=== PATIENT | male | born 1950 | race African-American/Black ===

== ENCOUNTER → 2017-03-23 | Outpatient (CLI) | payer MEDICARE ==
--- NOTE | 2017-03-23 11:32 | Diagnostic Imaging Report ---
PROCEDURE:X-RAY LEFT HUMERUS, TWO OR MORE VIEWS COMPARISON:None. INDICATIONS:PAIN LEFT ARM FINDINGS: There are no fractures, dislocations, lytic or blastic lesions. The bones are well-mineralized. The soft-tissues are unremarkable. CONCLUSION: No acute radiographic abnormality. Dictated by: Guy Roberts M.D. on 03/23/2017 at 11:41 Electronically approved by: Guy Roberts M.D. on 03/23/2017 at 11:41
== END ==
LOC: RAD 10:25
PROVIDERS: ATTEND Family Medicine
DX: M79.622 Pain in left upper arm (principal)

== ENCOUNTER → 2017-04-17 | Outpatient (CLI) | payer MEDICARE ==
--- NOTE | 2017-04-17 12:40 | Diagnostic Imaging Report ---
TECHNIQUE: Magnetic resonance imaging of the LEFT humerus was performed WITHOUT injected contrast. HISTORY: Pain COMPARISON: Images from left humerus radiographs March 23, 2017 FINDINGS: BONES: No acute fracture. No focal or infiltrative bone marrow replacing abnormality. JOINTS: Superior subluxation of the humeral head. No effusion. SOFT TISSUES: Evaluation of the rotator cuff is limited given the [id number] requested, but there appears to be mild edema and atrophy of the visualized portions of the posterior rotator cuff muscles. 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 Recommend a MRI of the shoulder without contrast for further characterization. Signed by: Dr. Hunter Gutiérrez D.O., M.M.M. on 04/17/2017 12:37 PM
== END ==
LOC: MRI 09:57
PROVIDERS: ATTEND Family Medicine
DX: M79.622 Pain in left upper arm (principal)

== ENCOUNTER → 2017-05-16 | Outpatient (CLI) | payer MEDICARE ==
--- NOTE | 2017-05-16 14:03 | Diagnostic Imaging Report ---
TECHNIQUE: Magnetic resonance imaging of the LEFT SHOULDER was performed WITHOUT injected contrast. COMPARISON: None available. HISTORY: Pain FINDINGS: MUSCLES AND TENDONS: Rotator Cuff: Tendons: Full thickness full width tear of the supraspinatus tendon and full-thickness near full width tear of the infraspinatus tendon. Deep fibers retracted approximately 4.5 cm. Moderate atrophy of the musculature. Partial-thickness tearing of the subscapularis. Muscles: No focal muscle atrophy. Biceps Tendon: The long head of the biceps tendon is torn and retracted. GLENOHUMERAL JOINT: Glenoid Labrum: Superior labral tearing. Articular Cartilage: No focal defect. AC JOINT AND ACROMION: Mild hypertrophic degenerative changes of the acromioclavicular joint. Subacromial spur. BONE: No acute fracture. SOFT TISSUES: Subacromial subdeltoid bursal fluid. IMPRESSION: Large full-thickness rotator cuff tear involving the supraspinatus and infraspinatus tendon with retraction and atrophy. High riding humeral head with subacromial spurring. Signed by: Dr. Jarret Kearns M.D. on 05/16/2017 1:59 PM
== END ==
LOC: MRI 10:48
PROVIDERS: ATTEND Specialist
DX: M75.122 Complete rotator cuff tear or rupture of left shoulder, not specified as traumatic (principal)

== ENCOUNTER → 2017-06-16 | Outpatient (CLI) | payer MEDICARE ==
[~2017-06-16] MED LIST: IOPAMIDOL 370 MG/ML 200 ML INFUS..BTL INJ ONE; SODIUM CHLORIDE 0.9% 250ML 250 ML ONE
[2017-06-16 17:21] LABS: BLOOD UREA NITROGEN 14 mg/dL (7-26); BUN/CREATININE RATIO 13 (6-25); CREATININE, SERUM 1.09 mg/dL (0.72-1.25); EST GLOMERULAR FILTRATION RATE > 60 ML/MIN (60-)
--- NOTE | 2017-06-16 19:16 | Diagnostic Imaging Report ---
PROCEDURE: CT ABDOMEN \T\ PELVIS W/WO CONTRAST TECHNIQUE: The abdomen and pelvis were scanned utilizing a multidetector helical scanner from the diaphragm to the lesser trochanter before and after the IV administration of 150 cc of Isovue 370 and the oral administration of water. Coronal and sagittal multiplanar reformations were obtained. 3D volume rendered images were created. DLP: 1488.6 mGy-cm COMPARISON: None. INDICATIONS: HEMATURIA FINDINGS: LOWER THORAX: Normal. HEPATOBILIARY: No focal hepatic lesions. No biliary ductal dilatation. SPLEEN: No splenomegaly. PANCREAS: No focal masses or ductal dilatation. ADRENALS: No adrenal nodules. KIDNEYS/URETERS: No hydronephrosis, stones, or solid mass lesions. Right superior pole 2.1 cm cyst. No filling defects within the opacified portions of the urinary collecting system. The right distal ureter and left mid ureter not well-opacified likely secondary to peristalsis. PELVIC ORGANS/BLADDER: No filling defects in the opacified portions of the bladder. No bladder calculi. Prostate measures approximately 4.1 x 4 x 4.8 cm (40.9 cc). PERITONEUM / RETROPERITONEUM: No free air or fluid. LYMPH NODES: No lymphadenopathy. VESSELS: Mild scattered atherosclerotic calcifications. No abdominal aortic aneurysm. GI TRACT: No distention or wall thickening. Colonic diverticula without evidence of diverticulitis. Tiny indirect right inguinal hernia contains the appendix. No evidence of appendicitis. BONES AND SOFT TISSUES: Multilevel degenerative changes of the thoracolumbar spine. Bone island in the left iliac bone. IMPRESSION: 1. No urolithiasis, renal masses, or filling defects in the opacified portions of the urinary collecting system. 2. Mildly enlarged prostate. 3. Colonic diverticulosis. 4. Right sided tiny Amyand hernia. Dictated by: Christian Chase M.D. on 06/16/2017 at 19:16 Electronically approved by: Christian Chase M.D. on 06/16/2017 at 19:16
== END ==
LOC: CT 16:28
PROVIDERS: ATTEND Family Medicine
DX: R31.9 Hematuria, unspecified (principal)
CPT/HCPCS: 36415; 74178; 82565; 84520; J7050; Q9967

== ENCOUNTER → 2017-10-23 | Outpatient (CLI) | payer MEDICARE ==
--- NOTE | 2017-10-23 11:46 | Diagnostic Imaging Report ---
PROCEDURE:X-RAY LEFT HEEL COMPARISON:None. INDICATIONS:LEFT HEEL PAIN FINDINGS: Normal mineralization. No evidence of fracture or malalignment. The joint spaces are preserved. No evidence of calcaneal spur or enthesopathy. CONCLUSION: Unremarkable left calcaneal radiographs. Dictated by: SIERRA LOUIS M.D. on 10/23/2017 at 11:51 Electronically approved by: SIERRA LOUIS M.D. on 10/23/2017 at 11:51
== END ==
LOC: RAD 09:55
PROVIDERS: ATTEND Family Medicine
DX: M79.672 Pain in left foot (principal); M89.8X7 Other specified disorders of bone, ankle and foot

== ENCOUNTER → 2018-03-13 | Outpatient (CLI) | payer MEDICARE ==
--- NOTE | 2018-03-13 11:22 | Diagnostic Imaging Report ---
PROCEDURE:ABDOMINAL ULTRASOUND COMPARISON:CT urogram 06/16/2017. INDICATIONS:ABDOMINAL PAIN TECHNIQUE: -scale and color sonographic images were obtained of the abdomen in transverse and sagittal planes. FINDINGS: Liver: 14.1 in length in right midclavicular line. Normal parenchymal echogenicity. No masses. Main portal vein: 0.7 cm in caliber. hepatopetal flow Gallbladder: Unremarkable without shadowing calculus, wall thickening, or pericholecystic fluid. Common Bile Duct: 0.4 cm in caliber. Sonographic Cuello's sign: Reported as negative. Right kidney: 10.1 cm in length. Exophytic upper pole cyst measures 2 x 1.9 x 2.2 cm, not significant changed relative to prior CT. No solid mass or hydronephrosis. Left kidney: 11.3 cm in length. Normal renal cortical echogenicity. No solid or cystic mass lesion. No hydronephrosis. Spleen: 8.9 cm in length. Uniform parenchymal echotexture. Pancreas: Poorly visualized secondary to overlying bowel gas. Inferior vena cava: Patent Aorta: Non-aneurysmal Ascites: None CONCLUSION: Simple right renal cyst. Otherwise unremarkable abdominal ultrasound. Dictated by: Adrian Wick M.D. on 03/13/2018 at 11:32 Electronically approved by: Adrian Wick M.D. on 03/13/2018 at 11:32
== END ==
LOC: US 09:29
PROVIDERS: ATTEND Family Medicine
DX: R10.9 Unspecified abdominal pain (principal); K92.0 Hematemesis
CPT/HCPCS: 76700

== ENCOUNTER → 2019-01-28 | Day surgery (SDC) | payer MEDICARE ==
[2019-01-25 15:23] LABS: BASOPHILS % 0.4 % (0.0-1.0); EOSINOPHILS # (AUTO) 0.3 (0.0-0.4); EOSINOPHILS % 4.5 % (0.0-6.0); HEMATOCRIT 40.7 % (38.2-49.6); HEMOGLOBIN 13.6 g/dL (14.0-18.0); LYMPHOCYTES # (AUTO) 2.3 (1.0-3.2); LYMPHOCYTES % 40.6 % (18.0-39.1); MEAN CORPUSCULAR HGB CONC 33.4 g/dL (31-35); MEAN CORPUSCULAR VOLUME 89.6 fL (81-99); MONOCYTES # (AUTO) 0.6 (0.2-0.8); MONOCYTES % 10.8 % (4.4-11.3); NEUTROPHILS # (AUTO) 2.4 (2.1-6.9); NEUTROPHILS % 43.5 % (38.7-80.0); PLATELET COUNT 188 x10e3/uL (140-360); RED BLOOD COUNT 4.54 x10e6/uL (4.3-5.7); RED CELL DISTRIBUTION WIDTH 13.6 % (11.7-14.4)
[2019-01-25 15:34] LABS: INR 0.89; PARTIAL THROMBOPLASTIN TIME 27.5 seconds (23.8-35.5); PROTHROMBIN TIME 12.5 seconds (11.9-14.5)
[2019-01-25 18:12] LABS: ALANINE AMINOTRANSFERASE 18 IU/L (0-55); ALBUMIN 3.9 g/dL (3.5-5.0); ALBUMIN/GLOBULIN RATIO 1.3 (0.8-2.0); ALKALINE PHOSPHATASE 70 IU/L (40-150); ANION GAP 12.7 mmol/L (8-16); BLOOD UREA NITROGEN 13 mg/dL (7-26); BUN/CREATININE RATIO 12 (6-25); CALCIUM 9.7 mg/dL (8.4-10.2); CARBON DIOXIDE 27 mmol/L (22-29); CHLORIDE 100 mmol/L (98-107); CREATININE, SERUM 1.11 mg/dL (0.72-1.25); EST GLOMERULAR FILTRATION RATE > 60 ML/MIN (60-); GLUCOSE 83 mg/dL (74-118); POTASSIUM 3.7 mmol/L (3.5-5.1); SODIUM 136 mmol/L (136-145)
[~2019-01-28] VITALS: Ht 188 cm; Wt 99.8 kg
[~2019-01-28] MED LIST changes: +ASPIR-LOW81 MG PO; +FENTANYL CITRATE/PF 100MCG/2 ML INJ ONE; +HEPARIN SOD/SOD CHLORIDE 2,000 ML ONE; +HYDROCHLOROTHIA25 MG; +LIDOCAINE HCL 2% LOCAL 20 ML VIAL ONE; +LOTREL 10-40 M1 EACH PO; +METOPROLOL SUCC50 MG PO; +MIDAZOLAM HCL 2 MG/2 ML VIAL ONE; +SODIUM CHLORIDE 0.9% 1000ML 1,000 ML ONE; -SODIUM CHLORIDE 0.9% 250ML 250 ML ONE; +VERAPAMIL HCL 2.5 MG/ML 2 ML VIAL ONE
--- OUTSIDE RECORDS SUMMARY | 2019-01-28 08:22 | XMS REPORT ---
Author Author [facility] Address Unknown Phone Unavailable Care Team Providers Care Ham Passer Name Role Phone RICHIE LOPEZ Unavailable Unavailable ROBIN HARVEY Unavailable Unavailable Problems This patient has no known problems. Allergies, Adverse Reactions, Alerts This patient has no known allergies or adverse reactions. Medications This patient has no known medications. Results Test Description Test Time Test Comments Text Results Atomic Results Result Comments US ABDOMEN COMPLETE 2018-03-13 11:32:00 [place] [address] Patient Name: SHAYLA PEREZ MR #: [id number] : 1950 Age/Sex: 67/M Req #: [id number] Adm Physician: Ordered by: JOHN VALDES, RICHIE Monk MD Report #: [id number] Location: US Room/Bed: Procedure: [id number] US/US ABDOMEN COMPLETE Exam Date: 03/13/18 Exam Time: 1000 REPORT STATUS: Signed PROCEDURE: ABDOMINAL ULTRASOUND COMPARISON: CT urogram 06/16/2017. INDICATIONS: ABDOMINAL PAIN TECHNIQUE: -scale and color sonographic images were obtained of the abdomen in transverse and sagittal planes. FINDINGS: Liver: 14.1 in length in right midclavicular line. Normal parenchymal echogenicity. No masses. Main portal vein: 0.7 cm in caliber. hepatopetal flow Gallbladder: Unremarkable without shadowing calculus, wall thickening, or pericholecystic fluid. Common Bile Duct: 0.4 cm in caliber. Sonographic Cuello's sign: Reported as negative. Right kidney: 10.1 cm in length. Exophytic upper pole cyst measures 2 x 1.9 x 2.2 cm, not significant changed relative to prior CT. No solid mass or hydronephrosis. Left kidney: 11.3 cm in length. Normal renal cortical echogenicity. No solid or cystic mass lesion. No hydronephrosis. Spleen: 8.9 cm in length. Uniform parenchymal echotexture. Pancreas: Poorly visualized secondary to overlying bowel gas. Inferior vena cava: Patent Aorta: Non-aneurysmal Ascites: None CONCLUSION: Simple right renal cyst. Otherwise unremarkable abdominal ultrasound. Dictated by: Brice Wick M.D. on 03/13/2018 at 11:32 Electronically approved by: Brice Wick M.D. on 03/13/2018 at 11:32 Dictated By: BRICE WICK MD 1132 Transcribed By: RENAY on 03/13/18 1132 COPY TO: RICHIE LOPEZ LT 2017-10-23 11:51:00 [place] [address] Patient Name: SHAYLA PEREZ MR #: [id number] : 1950 Age/Sex: 67/M Req #: [id number] Adm Physician: Ordered by: RICHIE LOPEZ MD, MD Report #: [id number] Location: [facility] Room/Bed: Procedure: [id number] DX/HEEL LT Exam Date: 10/23/17 Exam Time: 1030 REPORT STATUS: Signed PROCEDURE: X-RAY LEFT HEEL COMPARISON: None. INDICATIONS: LEFT HEEL PAIN FINDINGS: Normal mineralization. No evidence of fracture or malalignment. The joint spaces are preserved. No evidence of calcaneal spur or enthesopathy. CONCLUSION: Unremarkable left calcaneal radiographs. Dictated by: SIERRA LOUIS M.D. on 10/23/2017 at 11:51 Electronically approved by: SIERRA LOUIS M.D. on 10/23/2017 at 11:51 Dictated By: SIERRA LOUIS MD 1151 Transcribed By: RENAY on 10/23/17 1151 COPY TO: RICHIE LOPEZ CT ABDOMEN/PELVIS WOW [place] [address] Patient Name: SHAYLA PEREZ MR #: [id number] : 1950 Age/Sex: 66/M Req #: [id number] Adm Physician: Ordered by: JOHN VALDES, RICHIE Monk MD Report #: [id number] Location: CT Room/Bed: Procedure: [id number] CT/CT ABDOMEN/PELVIS WOW Exam Date: 06/16/17 Exam Time: 1800 REPORT STATUS: Signed PROCEDURE: CT ABDOMEN T PELVIS W/WO CONTRAST TECHNIQUE: The abdomen and pelvis were scanned utilizing a multidetector helical scanner from the diaphragm to the lesser trochanter before and after the IV administration of 150 cc of Isovue 370 and the oral administration of water. Coronal and sagittal multiplanar reformations were obtained. 3D volume rendered images were created. DLP: 1488.6 mGy-cm COMPARISON: None. INDICATIONS: HEMATURIA FINDINGS: LOWER THORAX: Normal. HEPATOBILIARY: No focal hepatic lesions. No biliary ductal dilatation. SPLEEN: No splenomegaly. PANCREAS: No focal masses or ductal dilatation. ADRENALS: No adrenal nodules. KIDNEYS/URETERS: No hydronephrosis, stones, or solid mass lesions. Right superior pole 2.1 cm cyst. No filling defects with in the opacified portions of the urinary collecting system. The right distal ureter and left mid ureter not well-opacified likely secondary to peristalsis. PELVIC ORGANS/BLADDER: No filling defects in the opacified portions of the bladder. No bladder calculi. Prostate measures approximately 4.1 x 4 x 4.8 cm (40.9 cc). PERITONEUM / RETROPERITONEUM: No free air or fluid. LYMPH NODES: No lymphadenopathy. VESSELS: Mild scattered atherosclerotic calcifications. No abdominal aortic aneurysm. GI TRACT: No distention or wall thickening. Colonic diverticula without evidence of diverticulitis. Tiny indirect right inguinal hernia contains the appendix. No evidence of appendicitis. BONES AND SOFT TISSUES: Multilevel degenerative changes of the thoracolumbar spine. Bone island in the left iliac bone. IMPRESSION: 1. No urolithiasis, renal masses, or filling defects in the opacified portions of the urinary collecting system. 2. Mildly enlarged prostate. 3. Colonic diverticulosis. 4. Right sided tiny Amyand hernia. Dictated by: Christian Velasquez M.D. on 06/16/2017 at 19:16 Electronically approved by: Christian Velasquez M.D. on 06/16/2017 at 19:16 Dictated By: CHRISTIAN VELASQUEZ MD 15 Transcribed By: RENAY on 06/16/171915 COPY TO: RICHIE LOPEZ MRI SHOULDER LEFT [place] [address] Patient Name: SHAYLA PEREZ MR #: [id number] : 1950 Age/Sex: 66/M Req #: [id number] Adm Physician: Ordered by: ROBIN HARVEY MD Report #: [id number] Location: MRI Room/Bed: Procedure: [id number] MRI/MRI SHOULDER LEFT WO Exam Date: Exam Time: REPORT STATUS: Signed TECHNIQUE: Magnetic resonance imaging of the LEFT SHOULDER was performed WITHOUT injected contrast. COMPARISON: None available. HISTORY: Pain FINDINGS: MUSCLES AND TENDONS: Rotator Cuff: Tendons: Full thickness full width tear of the supraspinatus tendon and full-thickness near full width tear of the infraspinatus tendon. Deep fibers retracted approximately 4.5 cm. Moderate atrophy of the musculature. Partial-thickness tearing of the subscapularis. Muscles: No focal muscle atrophy. Biceps Tendon: The long head of the biceps tendon is torn and retracted. GLENOHUMERAL JOINT: Glenoid Labrum: Superior labral tearing. Articular Cartilage: No focal defect. AC JOINT AND ACROMION: Mild hypertrophic degenerative changes of the acrom ioclavicular joint. Subacromial spur. BONE: No acute fracture. SOFT TISSUES: Subacromial subdeltoid bursal fluid. IMPRESSION: Large full-thickness rotator cuff tear involving the supraspinatus and infraspinatus tendon with retraction and atrophy. High riding humeral head with subacromial spurring. Signed by: Dr. Lena Thomson M.D. on 05/16/2017 1:59 PM Dictated By: LENA THOMSON MD 1357 Transcribed By: SHIRLEY on 05/16/17 1351 COPY TO: ROBIN HARVEY MD MRI HUMERUS LEFT WO [place] [address] Patient Name: SHAYLA PEREZ MR #: [id number] : 1950 Age/Sex: 66/M Req #: [id number] Adm Physician: Ordered by: JOHN VALDES, RICHIE Monk MD Report #: [id number] Location: MRI Room/Bed: Procedure: [id number] MRI/MRI HUMERUS LEFT WO Exam Date: Exam Time: REPORT STATUS: Signed TECHNIQUE: Magnetic resonance imaging of the LEFT humerus was performed WITHOUT injected contrast. HISTORY: Pain COMPARISON: Images from left humerus radiographs March 23, 2017 FINDINGS: BONES: No acute fracture. No focal or infiltrative bone marrow replacing abnormality. JOINTS: Superior subluxation of the humeral head. No effusion. SOFT TISSUES: Evaluation of the rotator cuff is limited given the [id number] requested, but there appears to be mild edema and atrophy of the visualized portions of the posterior rotator cuff muscles. 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 Recommend a MRI of the shoulder without contrast for further characterization. Signed by: Dr. Rafi Viveros D.O., M.M.M. on 12:37 PM Dictated By: RAFI VIVEROS DO 1237 Transcribed By: SHIRLEY on 04/17/17 1237 COPY TO: RICHIE LOPEZ HUMERUS LEFT 2+VIEWS [place] [address] Patient Name: SHAYLA PEREZ MR #: [id number] : 1950 Age/Sex: 66/M Req #: [id number] Adm Physician: Ordered by: RICHIE LOPEZ MD, MD Report #: [id number] Location: [facility] Room/Bed: Procedure: [id number] DX/HUMERUS LEFT 2+VIEWS Exam Date: 03/23/17 Exam Time: 1050 REPORT STATUS: Signed PROCEDURE: X-RAY LEFT HUMERUS, TWO OR MORE VIEWS COMPARISON: None. INDICATIONS: PAIN LEFT ARM FINDINGS: There are no fractures, dislocations, lytic or blastic lesions. The bones are well- mineralized. The soft-tissues are unremarkable. CONCLUSION: No acute radiographic abnormality. Dictated by: Stacey Lawson M.D. on 03/23/2017 at 11:41 Electronically approved by: Stacey Lawson M.D. on 03/23/2017 at 11:41 Dictated By: STACEY LAWSON MD 1141 Transcribed By: RENAY on 03/23/17 1141 COPY TO: RICHIE LOPEZ
--- NOTE | 2019-01-28 13:46 | Operative Report ---
DATE OF PROCEDURE: 01/28/2019 SURGEON: Ed Carey MD PROCEDURE INDICATION: Unstable angina. PROCEDURES PERFORMED: 1. Left heart catheterization. 2. Selective coronary angiography. 3. Right radial TR band hemostasis. PROCEDURE COMPLICATIONS: None. ESTIMATED BLOOD LOSS: Less than 15 mL. PROCEDURE SUMMARY: After consent was obtained, the patient was prepped and draped in a sterile fashion. The right radial site was locally infiltrated with 2% lidocaine and access was obtained. A 5-Armenian outer diameter slender sheath was advanced and a radial cocktail 5000 heparin, 200 mcg of nitroglycerin, and 2.5 mg of verapamil were administered via the sheath. A TIG catheter, 5-Armenian in diameter was used for engagement of the left main, then the right coronary artery, and to cross the aortic valve for hemodynamic measurements. No left ventriculogram was performed. FINDINGS: 1. LV pressure was 123/3 with end-diastolic pressure of 12. 2. Aortic pressure is 120/79. 3. No left ventriculogram was performed. 4. Left main is large in caliber with luminal irregularities. It gives an LAD, ramus intermedius, and circumflex. 5. Mild calcification noted throughout the coronary tree with the LAD, demonstrating luminal irregularities and focal area of 30% in the distal LAD. Multiple diagonals and septal perforators arising from this vessel. 6. Ramus intermedius is a kgmnf-ef-uqyzyp in caliber with luminal irregularities throughout. 7. Circumflex has focal 30% stenosis and gives two obtuse marginals. 8. Right coronary artery is large in caliber, dominant and with a focal 30% to 40% stenosis proximal, 30% stenosis in the mid segment, it gives a terminal RPDA and with AV nasim branch arising from the terminal branches. CONCLUSIONS: 1. Zonl-iv-gylaxlra multivessel coronary artery disease. Recommend medical management. Aspirin, statin, and antihypertensive therapy prescribed. 2. Wean TR band. 3. Outpatient followup in 4 weeks. Ed Carey MD AFV/MODL /[id number]
== END | disposition home or self-care (01) ==
LOC: CATH LAB 08:12
PROVIDERS: ATTEND Internal Medicine Cardiovascular Disease
DX: I25.110 Atherosclerotic heart disease of native coronary artery with unstable angina pectoris (principal); I10 Essential (primary) hypertension; E78.5 Hyperlipidemia, unspecified; Z82.49 Family history of ischemic heart disease and other diseases of the circulatory system; Z88.8 Allergy status to other drugs, medicaments and biological substances; Z01.810 Encounter for preprocedural cardiovascular examination; Z01.812 Encounter for preprocedural laboratory examination
CPT/HCPCS: 36415; 80053; 80061; 85025; 85610; 85730; 93005; 93458; C1887; J2001; J2250; J3010; J7030; Q9967; 99152